=== PATIENT | male | born 1965 | race African-American/Black ===

== ENCOUNTER 2023-03-19 11:41 | Emergency (ER) | payer OTHER ==
--- NOTE | 2023-03-19 13:24 | RAD REPORT ---
EXAM DESCRIPTION: CT - Stone Protocol - 03/19/2023 12:47 pm CLINICAL HISTORY: ABD PAIN COMPARISON: No comparisons TECHNIQUE: Thin cut axial CT imaging of the abdomen and pelvis was performed without IV contrast. Mu ltiplanar reformats were generated and reviewed. All CT scans are performed using dose optimization technique as appropriate and may include automated exposure control or mA/KV adjustment according to patient size. FINDINGS: No suspicious findings in the lung bases. The liver, spleen, and pancreas show no suspicious findings. Gallbladder and biliary tree are also wi thout suspicious finding. Symmetric renal contour, without suspicious parenchymal findings within limits of noncontrast techniq ue. No evidence of radiopaque calculi or hydroureteronephrosis. No dilated bowel loops or bowel wall thickening. No free air, free fluid or inflammatory stranding. N o suspicious mass or bulky lymphadenopathy. Diastasis recti. Bilateral small inguinal hernias contain ing fat. Prostatomegaly. The urinary bladder is suboptimally distended. Undulated appearance along the urinary bladder dome anteriorly more so on the right, nonspecific. No suspicious bony findings. IMPRESSION: No acute intra-abdominal process. Undulated appearance of the urinary bladder dome anteriorly and more so on the right under distention although possibility of an underlying mucosal mass or malignancy cannot be entirely excluded. Prostatomegaly. Bilateral small inguinal hernias containing fat.
--- NOTE | 2023-03-19 14:03 | EDPHYS ---
Physician Documentation [facility] Name: Anthony Davis Age: 57 yrs Sex: Male : 1965 Arrival Date: 03/19/2023 Time: 11:41 Bed 16 Private MD: ED Physician Karthik Ordonez HPI: 03/19 14:18 This 57 yrs old Black Male presents to ER via Ambulatory with complaints of Abdominal kb Pain. 14:18 The patient presents with abdominal pain right groin. Onset: The symptoms/episode kb began/occurred over a year ago, pain was worse than normal last night. The symptoms do not radiate. Associated signs and symptoms: none. The symptoms are described as constant. Modifying factors: The symptoms are alleviated by nothing, the symptoms are aggravated by pressure. Severity of pain: At its worst the pain was moderate in the emergency department the pain is unchanged. The patient has not experienced similar symptoms in the past. The patient has not recently seen a physician. Historical: - Allergies: 12:02 No Known Allergies; ss - Home Meds: 12:02 None [Active]; ss - PSHx: 12:02 umbilical hernia repair; ss - Immunization history:: Client reports receiving the 2nd dose of the Covid vaccine. - Social history:: Smoking status: Patient denies any tobacco usage or history of. ROS: 14:18 Constitutional: Negative for fever, chills, and weight loss. kb 14:18 Abdomen/GI: Positive for abdominal pain, Negative for nausea, vomiting, and diarrhea. 14:18 All other systems are negative. Exam: 14:18 Constitutional: This is a well developed, well nourished patient who is awake, alert, kb and in no acute distress. Head/Face: Normocephalic, atraumatic. ENT: Moist Mucous membranes Cardiovascular: Regular rate Respiratory: Respirations even and unlabored. No increased work of breathing. Talking in full sentences Abdomen/GI: Soft, non-tender. No distention Skin: Warm, dry with normal turgor. Normal color. MS/ Extremity: Pulses equal, no cyanosis. Neurovascular intact. Full, normal range of motion. Neuro: Awake and alert, GCS 15, oriented to person, place, time, and situation. Moves all extremities. Normal gait. Vital Signs: 12:00 BP 131 / 90; Pulse 58; Resp 16; Temp 98(TE); Pulse Ox 99% on R/A; Weight 97.52 kg; ss Height 6 ft. 0 in. ; Pain 7/10; 14:10 BP 148 / 92; Pulse 60; Resp 16; Pulse Ox 99% on R/A; db 12:00 Body Mass Index 29.16 (97.52 kg, 182.88 cm) ss 12:00 Pain Scale: Adult ss MDM: 12:04 Patient medically screened. kb 14:19 Differential diagnosis: non-specific abd pain, hernia, kidney stone, appendicitis. Data kb reviewed: vital signs, nurses notes. Counseling: I had a detailed discussion with the patient and/or guardian regarding the historical points, exam findings, and any diagnostic results supporting the discharge/admit diagnosis, lab results, radiology results, the need for outpatient follow up, a general surgeon, a urologist, to return to the emergency department if symptoms worsen or persist or if there are any questions or concerns that arise at home. 03/19 12:10 Order name: CT Stone Protocol; Complete Time: 13:36 kb Administered Medications: 14:16 Drug: Reddick PO 10 mg-325 mg 1 tabs Route: PO; db 14:19 Follow up: Response: No adverse reaction db Disposition Summary: 03/19/23 14:02 Discharge Ordered Location: Home kb Condition: Stable kb Diagnosis - Lower abdominal pain, unspecified kb - Enlarged prostate without lower urinary tract symptoms kb - Unilateral inguinal hernia, without obstruction or gangrene kb Followup: kb - With: Emergency Department - When: As needed - Reason: Worsening of condition Followup: kb - With: Private Physician - When: 2 - 3 days - Reason: Recheck today's complaints, Continuance of care, Re-evaluation by your physician Followup: kb - With: Lauri Gamboa MD - When: 2 - 3 days - Reason: Recheck today's complaints Discharge Instructions: - Discharge Summary Sheet kb - Inguinal Hernia, Adult, [id number] kb - Abdominal Pain, Adult, [id number] kb Forms: - Medication Reconciliation Form kb - Thank You Letter kb - Antibiotic Education kb - Prescription Opioid Use kb - Patient Portal Instructions kb - Leadership Thank You Letter kb Prescriptions: - Diclofenac Sodium 75 mg Oral tablet,delayed release (DR/EC) - take 1 tablet by ORAL route 2 times per day As needed; 30 tablet; Refills: 0, kb Product Selection Permitted Signatures: Dispatcher [employer] Linette Moeller, CRYSTALC Geno Gutierrez, RN RN ss Marsha Valadez RN RN db
--- NOTE | 2023-03-19 14:03 | ER ---
Nurse's Notes [facility] Name: Anthony Davis Age: 57 yrs Sex: Male : 1965 Arrival Date: 03/19/2023 Time: 11:41 Bed 16 Private MD: Diagnosis: Lower abdominal pain, unspecified;Enlarged prostate without lower urinary tract symptoms;Unilateral inguinal hernia, without obstruction or gangrene Presentation: 03/19 12:00 Chief complaint: Patient states: RLQ pain that began 1 year ago. Pt reports he was seen ss by Dr. Gamboa years ago for similar pain that was much more mild at the time and told that he had a hernia. Coronavirus screen: Client denies travel out of the [place] in the last 14 days. Ebola Screen: Patient denies exposure to infectious person. Patient denies travel to an Ebola-affected area in the 21 days before illness onset. Initial Sepsis Screen: Does the patient meet any 2 criteria? No. Patient's initial sepsis screen is negative. Does the patient have a suspected source of infection? No. Patient's initial sepsis screen is negative. Risk Assessment: Do you want to hurt yourself or someone else? Patient reports no desire to harm self or others. Onset of symptoms was March 2022. 12:00 Method Of Arrival: Ambulatory ss 12:00 Acuity: AVE 3 ss Historical: - Allergies: 12:02 No Known Allergies; ss - Home Meds: 12:02 None [Active]; ss - PSHx: 12:02 umbilical hernia repair; ss - Immunization history:: Client reports receiving the 2nd dose of the Covid vaccine. - Social history:: Smoking status: Patient denies any tobacco usage or history of. Screenin:18 [facility] ED Fall Risk Assessment (Adult) History of falling in the last 3 months, db including since admission No falls in past 3 months (0 pts) Score/Fall Risk Level 0 - 2 = Low Risk Oriented to surroundings, Maintained a safe environment. Abuse screen: Denies threats or abuse. Denies injuries from another. Nutritional screening: No deficits noted. Tuberculosis screening: No symptoms or risk factors identified. Assessment: 12:04 Reassessment: Patient appears in no apparent distress at this time. PATIENT AMBULATORY db TO ROOM. 12:40 Reassessment: Patient appears in no apparent distress at this time. Patient and/or db family updated on plan of care and expected duration. Pain level reassessed. Patient is alert, oriented x 3, equal unlabored respirations, skin warm/dry/pink. PATIENT TO CT. General: Appears in no apparent distress. comfortable, Behavior is calm, cooperative. Pain: Complains of pain in abdomen. Neuro: Level of Consciousness is awake, alert, obeys commands, Oriented to person, place, time, situation. Respiratory: Airway is patent Respiratory effort is even, unlabored, Respiratory pattern is regular, symmetrical. GI: Bowel sounds present X 4 quads. Abd is soft. 14:18 Reassessment: Patient appears in no apparent distress at this time. Patient and/or db family updated on plan of care and expected duration. Pain level reassessed. Patient is alert, oriented x 3, equal unlabored respirations, skin warm/dry/pink. Vital Signs: 12:00 BP 131 / 90; Pulse 58; Resp 16; Temp 98(TE); Pulse Ox 99% on R/A; Weight 97.52 kg; ss Height 6 ft. 0 in. ; Pain 7/10; 14:10 BP 148 / 92; Pulse 60; Resp 16; Pulse Ox 99% on R/A; db 12:00 Body Mass Index 29.16 (97.52 kg, 182.88 cm) ss 12:00 Pain Scale: Adult ss ED Course: 11:44 Patient arrived in ED. im 12:02 Triage completed. ss 12:02 Arm band placed on right wrist. ss 12:04 Marsha Valadez, PASTORA is Primary Nurse. db 12:04 Linette Mccloud FNP-C is PHCP. kb 12:04 Karthik Ordonez is Attending Physician. kb 12:49 CT Stone Protocol In Process Unspecified. EDMS 14:02 Lauri Gamboa MD is Referral Physician. kb 14:18 Patient has correct armband on for positive identification. Bed in low position. Call db light in reach. Side rails up X 1. Provided Education on: DISCHARGE. 14:18 No provider procedures requiring assistance completed. Patient did not have IV access db during this emergency room visit. Administered Medications: 14:16 Drug: Woden PO 10 mg-325 mg 1 tabs Route: PO; db 14:19 Follow up: Response: No adverse reaction db Medication: 14:18 VIS not applicable for this client. db Outcome: 14:02 Discharge ordered by MD. go 14:18 Discharged to home ambulatory, with family. db 14:18 Condition: stable 14:18 Discharge instructions given to patient, Instructed on discharge instructions, follow up and referral plans. Prescriptions given X 1. 14:19 Patient left the ED. db Signatures: Dispatcher [employer] EDNC Linette Mccloud, SUKHDEV ROJAS-Geno Shafer RN RN Marsha Valadez RN RN db Amy Dang
[2023-03-19 14:25] VITALS: TEMP 98; O2SAT 99
[2023-03-19] MEDS ORDERED: HYDROCODONE/APAP 10/325 TAB ONE (14:27)
[2023-03-19 14:28] VITALS: BP 148/92
== END 2023-03-19 14:19 | disposition home or self-care (01) ==
LOC: ER 11:41
DX: N40.1 Benign prostatic hyperplasia with lower urinary tract symptoms (principal); K40.90 Unilateral inguinal hernia, without obstruction or gangrene, not specified as recurrent
CPT/HCPCS: 74176; 76377; 99283

== ENCOUNTER 2024-01-05 22:06 | Emergency (ER) | payer OTHER ==
--- NOTE | 2024-01-06 02:25 | ER ---
Nurse's Notes [facility] Name: Anthony Davis Age: 58 yrs Sex: Male : 1965 Arrival Date: 01/05/2024 Time: 22:06 Bed 15 Private MD: Diagnosis: Fall on same level, unspecified;Pain in left knee;Sprain of medial collateral ligament of left knee Presentation: 01/04 22:13 Chief complaint: Patient states: c/o L knee pain for the past 2 weeks, states he al5 slipped and landed on his knee coming from outside when it was raining. Coming in today because he thought the pain would go away but has not. Coronavirus screen: At this time, the client does not indicate any symptoms associated with coronavirus-19. Ebola Screen: No symptoms or risks identified at this time. Initial Sepsis Screen: Does the patient meet any 2 criteria? No. Patient's initial sepsis screen is negative. Does the patient have a suspected source of infection? No. Patient's initial sepsis screen is negative. Risk Assessment: Do you want to hurt yourself or someone else? Patient reports no desire to harm self or others. Onset of symptoms was December 26, 2023. 22:13 Method Of Arrival: Ambulatory al5 22:13 Acuity: AVE 4 al5 Triage Assessment: 22:18 General: Appears in no apparent distress. Behavior is calm, cooperative. Pain: al5 Complains of pain in left knee Pain currently is 4 out of 10 on a pain scale. Is intermittent. EENT: No deficits noted. No signs and/or symptoms were reported regarding the EENT system. Neuro: Level of Consciousness is awake, alert, obeys commands, Oriented to person, place, time, situation, Speech is normal, Facial symmetry appears normal. Cardiovascular: Patient's skin is warm and dry. Respiratory: Airway is patent Trachea midline Respiratory effort is even, unlabored, Respiratory pattern is regular, symmetrical. GI: No deficits noted. No signs and/or symptoms were reported involving the gastrointestinal system. : No deficits noted. No signs and/or symptoms were reported regarding the genitourinary system. Derm: Skin is intact, Skin is dry, Skin is pink, warm \T\ dry. normal, Skin temperature is warm. Musculoskeletal: pain in L knee. Injury Description: Pain in L knee. Historical: - Allergies: 22:16 No Known Allergies; al5 - PMHx: 22:16 None; al5 - PSHx: 22:16 umbilical hernia repair; al5 - Immunization history:: Adult Immunizations up to date. - Infectious Disease History:: Denies. - Social history:: Smoking status: Patient denies any tobacco usage or history of. - Family history:: not pertinent. Screenin/06 02:43 [facility] ED Fall Risk Assessment (Adult) History of falling in the last 3 months, jb4 including since admission Yes- single mechanical fall (1 pt) Confusion or Disorientation No (0 pts) Intoxicated or Sedated No (0 pts) Impaired Gait No (0 pts) Mobility Assist Device Used No (0 pt) Altered Elimination No (0 pt) Score/Fall Risk Level 0 - 2 = Low Risk Oriented to surroundings, Maintained a safe environment. Abuse screen: Denies threats or abuse. Nutritional screening: No deficits noted. Tuberculosis screening: No symptoms or risk factors identified. Assessment: 01/04 23:15 General: Appears in no apparent distress. comfortable, Behavior is calm, cooperative, jb4 appropriate for age. Pain: Complains of pain in medial aspect of left knee Pain does not radiate. Pain currently is 5 out of 10 on a pain scale. Quality of pain is described as tender. Neuro: Level of Consciousness is awake, alert, obeys commands, Oriented to person, place, time, situation. Cardiovascular: Patient's skin is warm and dry. Respiratory: Airway is patent Respiratory effort is even, unlabored, Respiratory pattern is. GI: No signs and/or symptoms were reported involving the gastrointestinal system. : No signs and/or symptoms were reported regarding the genitourinary system. EENT: No signs and/or symptoms were reported regarding the EENT system. Derm: Skin is intact, Skin is dry, Skin is normal, Skin temperature is warm. 01/05 00:39 Reassessment: Patient appears in no apparent distress at this time. Patient and/or jb4 family updated on plan of care and expected duration. Pain level reassessed. Patient is alert, oriented x 3, equal unlabored respirations, skin warm/dry/pink. 02:43 Reassessment: Patient appears in no apparent distress at this time. Patient and/or jb4 family updated on plan of care and expected duration. Pain level reassessed. Patient is alert, oriented x 3, equal unlabored respirations, skin warm/dry/pink. Patient states feeling better. Vital Signs: 01/04 22:13 BP 155 / 95; Pulse 62; Resp 17; Temp 98.4(TE); Pulse Ox 100% on R/A; Weight 97.98 kg; al5 Height 6 ft. 1 in. ; Pain 4/10; 22:13 Body Mass Index 28.50 (97.98 kg, 185.42 cm) al5 22:13 Pain Scale: Adult al5 ED Course: 22:09 Patient arrived in ED. mg5 22:15 Yoel Hernandez MD is Attending Physician. [facility] 22:16 Triage completed. al5 22:19 Arm band placed on left wrist. Patient placed in an exam room, on a stretcher. al5 07 00:13 XRAY Knee LEFT 3 view In Process Unspecified. EDMD 02:23 Seb Bravo MD is Referral Physician. [facility] 02:43 Patient has correct armband on for positive identification. Bed in low position. Call jb4 light in reach. Side rails up X 1. Provided Education on: discharge instructions.. 02:43 No provider procedures requiring assistance completed. Patient did not have IV access jb4 during this emergency room visit. Administered Medications: 02:42 Drug: Hydrocodone-Acetaminophen PO (7.5 mg-325 mg) 1 tabs PO once Route: PO; jb4 02:43 Drug: Ibuprofen PO 600 mg PO once Route: PO; jb4 Medication: 02:43 VIS not applicable for this client. jb4 Outcome: 02:24 Discharge ordered by . [facility] 02:43 Discharged to home ambulatory, jb 02:43 Condition: stable 02:43 Discharge instructions given to patient, Instructed on discharge instructions, follow up and referral plans. no drinking with medication, no driving heavy equipment, medication usage, Demonstrated understanding of instructions, follow-up care, medications, Prescriptions given X 2, 02:44 Patient left the ED. jb4 Signatures: Dispatcher [employer] EDMD Yoel Hernandez MD MD cha Bryson, James, RN RN jb4 Nikky Jarrett 5 Aruna Reid RN RN al5
--- NOTE | 2024-01-06 02:25 | EDPHYS ---
Physician Documentation [facility] Name: Anthony Davis Age: 58 yrs Sex: Male : 1965 Arrival Date: 01/05/2024 Time: 22:06 Bed 15 Private MD: ED Physician Yoel Hernandez HPI: 01/05 02:19 This 58 yrs old Black Male presents to ER via Ambulatory with complaints of Knee Injury.steven 02:19 The patient presents with decreased range of motion, pain, swelling, tenderness. The steven complaints affect the medial aspect of left knee. Context: The problem was sustained HOTEL. Onset: The symptoms/episode began/occurred just prior to arrival. Modifying factors: The symptoms are alleviated by elevating leg, remaining still, the symptoms are aggravated by movement, weight bearing. Associated signs and symptoms: Pertinent positives: swelling. Treatment prior to arrival includes: no previous treatment. Severity of symptoms: At their worst the symptoms were moderate, in the emergency department the symptoms are unchanged. The patient has not experienced similar symptoms in the past. Historical: - Allergies: 01/04 22:16 No Known Allergies; al5 - PMHx: 22:16 None; al5 - PSHx: 22:16 umbilical hernia repair; al5 - Immunization history:: Adult Immunizations up to date. - Infectious Disease History:: Denies. - Social history:: Smoking status: Patient denies any tobacco usage or history of. - Family history:: not pertinent. ROS: 01/05 02:19 Constitutional: Negative for fever, chills, and weight loss, Eyes: Negative for injury, steven pain, redness, and discharge, ENT: Negative for injury, pain, and discharge, Neck: Negative for injury, pain, and swelling, Cardiovascular: Negative for chest pain, palpitations, and edema, Respiratory: Negative for shortness of breath, cough, wheezing, and pleuritic chest pain, Abdomen/GI: Negative for abdominal pain, nausea, vomiting, diarrhea, and constipation, Back: Negative for injury and pain, : Negative for injury, bleeding, discharge, and swelling, Skin: Negative for injury, rash, and discoloration, Neuro: Negative for headache, weakness, numbness, tingling, and seizure, Psych: Negative for depression, anxiety, suicide ideation, homicidal ideation, and hallucinations, Allergy/Immunology: Negative for hives, rash, and allergies, Endocrine: Negative for neck swelling, polydipsia, polyuria, polyphagia, and marked weight changes, Hematologic/Lymphatic: Negative for swollen nodes, abnormal bleeding, and unusual bruising, MS/extremity: Positive for decreased range of motion, pain, swelling, tenderness, of the medial aspect of left knee, Exam: 02:19 Constitutional: This is a well developed, well nourished patient who is awake, alert, steven and in no acute distress. Head/Face: Normocephalic, atraumatic. Eyes: Pupils equal round and reactive to light, extra-ocular motions intact. Lids and lashes normal. Conjunctiva and sclera are non-icteric and not injected. Cornea within normal limits. Periorbital areas with no swelling, redness, or edema. ENT: Nares patent. No nasal discharge, no septal abnormalities noted. Tympanic membranes are normal and external auditory canals are clear. Oropharynx with no redness, swelling, or masses, exudates, or evidence of obstruction, uvula midline. Mucous membranes moist. Neck: Trachea midline, no thyromegaly or masses palpated, and no cervical lymphadenopathy. Supple, full range of motion without nuchal rigidity, or vertebral point tenderness. No Meningismus. Chest/axilla: Normal chest wall appearance and motion. Nontender with no deformity. No lesions are appreciated. Cardiovascular: Regular rate and rhythm with a normal S1 and S2. No gallops, murmurs, or rubs. Normal PMI, no JVD. No pulse deficits. Respiratory: Lungs have equal breath sounds bilaterally, clear to auscultation and percussion. No rales, rhonchi or wheezes noted. No increased work of breathing, no retractions or nasal flaring. Abdomen/GI: Soft, non-tender, with normal bowel sounds. No distension or tympany. No guarding or rebound. No evidence of tenderness throughout. Back: No spinal tenderness. No costovertebral tenderness. Full range of motion. Male : Normal genitalia with no discharge or lesions. Skin: Warm, dry with normal turgor. Normal color with no rashes, no lesions, and no evidence of cellulitis. Neuro: Awake and alert, GCS 15, oriented to person, place, time, and situation. Cranial nerves II-XII grossly intact. Motor strength 5/5 in all extremities. Sensory grossly intact. Cerebellar exam normal. Normal gait. Psych: Awake, alert, with orientation to person, place and time. Behavior, mood, and affect are within normal limits. 02:19 Musculoskeletal/extremity: ROM: limited active range of motion, limited passive range of motion, limited active range of motion due to pain, limited passive range of motion due to pain, in the medial aspect of left knee and left knee, Vital Signs: 01/04 22:13 BP 155 / 95; Pulse 62; Resp 17; Temp 98.4(TE); Pulse Ox 100% on R/A; Weight 97.98 kg; al5 Height 6 ft. 1 in. ; Pain 4/10; 22:13 Body Mass Index 28.50 (97.98 kg, 185.42 cm) al5 22:13 Pain Scale: Adult al5 Procedures: 01/05 02:19 Splinting: using knee immobilizer, Examined by me, post splint application: steven neurovascular intact. MDM: 01/04 22:15 Patient medically screened. steven 01/05 02:19 Differential diagnosis: closed fracture, contusion, tendonitis. Data reviewed: vital steven signs, nurses notes, radiologic studies, plain films. Consideration of Admission/Observation Escalation of care including admission/observation considered. I considered the following discharge prescriptions or medication management in the emergency department Medications were administered in the Emergency Department. See MAR. Independent interpretation of the following test(s) in the Emergency Department X-Ray: My interpretation is NO FX. Test considered but Not performed: Labs: NO LABS. Historians other than the Patient: Spouse/Significant Other: WELL INFORMED. Care significantly affected by the following chronic conditions: NONE. 01/04 23:05 Order name: XRAY Knee LEFT 3 view jb4 01/05 02:19 Order name: Knee Immobilizer; Complete Time: 02:34 steven Administered Medications: 02:42 Drug: Hydrocodone-Acetaminophen PO (7.5 mg-325 mg) 1 tabs PO once Route: PO; jb4 02:43 Drug: Ibuprofen PO 600 mg PO once Route: PO; jb4 Disposition Summary: 01/06/24 02:24 Discharge Ordered Notes: Location: Home steven Problem: new steven Symptoms: have improved steven Condition: Stable steven Diagnosis - Fall on same level, unspecified steven - Pain in left knee steven - Sprain of medial collateral ligament of left knee [facility] Followup: steven - With: Private Physician - When: 2 - 3 days - Reason: Recheck today's complaints, Continuance of care, Re-evaluation by your physician Followup: steven - With: Seb Bravo MD - When: 2 - 3 days - Reason: Recheck today's complaints, Re-evaluation by your physician Discharge Instructions: - Discharge Summary Sheet [facility] - Joint Pain [facility] - How to Use a Knee Brace [facility] - RICE Therapy for Routine Care of Injuries [facility] - Acute Knee Pain, Adult [facility] - RICE Therapy for Routine Care of Injuries, [id number] [facility] - How to Use Cold Therapy, [id number] steven - Joint Pain, [id number] [facility] Forms: - Medication Reconciliation Form [facility] - Antibiotic Education [facility] - Prescription Opioid Use [facility] - Patient Portal Instructions [facility] - Leadership Thank You Letter [facility] Prescriptions: - acetaminophen-codeine 300-15 mg Oral tablet - take 2 tablet ORAL route every 6 hours; 2 tablet; Refills: 0, Product Selection [facility] Permitted - Ibuprofen 600 mg Oral Tablet - take 1 tablet ORAL route every 6 hours As needed take with food; 30 tablet; [facility] Refills: 0, Product Selection Permitted Signatures: Dispatcher [employer] Yoel French MD MD cha Bryson, James, RN RN jb4 Aruna Reid RN RN al5 Corrections: (The following items were deleted from the chart) 02:43 02:19 Ice pack ordered. steven jb4
[2024-01-06] MEDS ORDERED: IBUPROFEN 200 MG TAB PO ONE (02:38)
[2024-01-06] MEDS ORDERED: HYDROCODONE/APAP 7.5/325 MG TAB ONE (02:39)
[2024-01-06 03:06] VITALS: BP 155/95; TEMP 98.4; O2SAT 100
--- NOTE | 2024-01-07 17:12 | RAD REPORT ---
EXAM DESCRIPTION: Knee Left 3 View CLINICAL HISTORY: PAIN COMPARISON: None. TECHNIQUE: XR KNEE 3 VIEWS LEFT 01/05/2024 11:05 PM CDT FINDINGS: There is no fracture. Joint spaces are preserved. Soft tissues are unremarkable. IMPRESSION: No acute osseous findings. Electronically signed by: Les Rivas MD 01/06/2024 12:33 AM CDT RP Due to temporary technical issues with the PACS/Fluency reporting system, reports are being signed by the in house radiologists without review as a courtesy to insure prompt reporting. The interpreting radiologist is fully responsible for the content of the report.
== END 2024-01-06 02:44 | disposition home or self-care (01) ==
LOC: ER 22:06
DX: S83.412A Sprain of medial collateral ligament of left knee, initial encounter (principal); W18.30XA Fall on same level, unspecified, initial encounter
CPT/HCPCS: 99283